=== PATIENT | male | born 1970 | race Caucasian/White ===

== ENCOUNTER 2024-10-13 16:24 | Emergency (ER) | payer OTHER, SELFPAY ==
--- NOTE | ~2024-10-13 | XR_ITS ---
CLINICAL HISTORY: twisted ankle at work 3 view left ankle Comparison: None Findings: Bones intact. No dislocations. No significant loss of joint space, osteophytes, or erosions. No ankle effusion. No radiopaque foreign body. IMPRESSION: 1. No acute findings. This document has been electronically signed by: Vishal Portillo MD on 10/13/2024 18:46:52
[2024-10-13 17:54] VITALS: BP 143/85; PULSE 80; RESP 20; TEMP 36.7; O2SAT 96; BMI 29.7
--- NOTE | 2024-10-13 17:54 | ED_ITS ---
HPI - Extremity Injury (Lower) General Chief Complaint: Extremity Injury, Lower Stated Complaint: rolled ankle, work injury Time Seen by Provider: 10/13/24 19:14 Source: patient, RN notes reviewed and old records reviewed Mode of arrival: ambulatory History of Present Illness ED Provider: Laura Acuna PA-C HPI Narrative: 54-year-old male with no significant past medical history presenting to the ED complaining of left ankle pain s/p pulling cable at work [employer] and foot was extended and heard a pop when foot/ankle twisted. Denies direct injury/trauma or fall. States pain exacerbated with certain positions, not that severe with ambulation. Denies numbness, tingling, weakness, injury to other area. Related Data Allergies Allergy/AdvReac Type Severity Reaction Status Date / Time No Known Allergies Allergy Verified 10/13/24 17:56 Review of Systems Review of Systems: Yes all other systems are reviewed and are negative Constitutional: Constitutional: Reports as per [facility] Past Medical History Attestation statement: The following information was validated with the patient. Source: old records reviewed Social History Social History Do you have a plan to hurt others: No Plan Physical Exam Vital Signs: Vital Signs: Last Vital Signs Temp 98.1 F 10/13/24 17:54 Pulse 76 10/13/24 19:15 Resp 18 10/13/24 19:15 BP 147/93 H 10/13/24 19:15 Pulse Ox 99 10/13/24 19:15 O2 Del Method Room Air 10/13/24 19:15 BMI result Body Mass Index 29.7 Const: General: cooperative, healthy appearing and no acute distress Orientation/consciousness: patient oriented x3 Limitations: no limitations HEENT: Head: Yes normal to inspection and Yes atraumatic Ears: hearing grossly normal bilaterally General nose exam: Normal external nose present Face and sinus: Yes normal facial exam Eyes: General: appearance normal, both eyes and all related structures EOM: EOMs intact bilaterally Neck: Neck: Yes normal visual inspection and Yes no meningeal signs Resp: Effort & Inspection: normal respiratory effort and no respiratory distress Cardio: Rate: regular rate Skin: Rashes: no rashes Wounds: no wounds Neuro: General: patient oriented x3, tone normal and no meningeal signs Cranial nerves: Yes CN's II-XII intact bilaterally Gait exam (Neuro): Normal gait present Extrem: Other: No appreciable deformity. No swelling/erythema or warmth. Mildly tender to palpation. ROM intact. Neurovascularly intact. No pitting edema General: Yes normal to inspection Course Course Course Narrative: This is a Rapid Medical Exam performed in triage by Laura Acuna PA-C. Full HPI, ROS and PE to be performed by primary ED provider. 54yo M presenting to the ED c/o left ankle pain s/p pulling on cable at work [employer] & foot was extended & heard a pop & ankle twisted. Denies direct trauma or fall. Pain exacerbated with certain positions. PE: L foot/ankle w/o deformity. No erythema/deformity. +slightly ttp. NV intact Plan: XR XR ankle LT min 3V IMPRESSION: 1. No acute findings. > Jim wrap applied Results discussed with patient including worrisome signs and symptoms and strict return precautions, and when to return to the emergency department. They verbalized understanding and feel safe for discharge at this time. Medical Decision Making Medical Decision Making MDM Narrative: 54-year-old male with no significant past medical history presenting to the ED complaining of left ankle pain s/p pulling cable at work [employer] and foot was extended and heard a pop when foot/ankle twisted. On exam vital signs stable, NAD, nontoxic appearing, physical exam as noted above. Concern for sprain vs fracture. No evidence of septic joint/arthritis Plan: X-rays Please refer to course for remaining clinical decision making, interpretation of labs/imaging results, and discussions with consultants and/or family members. Differential Diagnosis Differential Diagnoses: The differential diagnosis associated with the presentation includes As above Independent Interpretation I performed an independent interpretation of an: Plain X-Ray Radiology Impression Discussion of test interpretation with radiology: I have reviewed the radiologist's reading. External Record Review External record reviewed: Inpatient record, Office record, Outpatient record, Prior outpatient labs, Prior outpatient radiology, Primary care record and Outside ED record Tests considered The following testing was considered but not selected: As above Prescription Management I considered prescription management with: Pain Medication and Antibiotic Social Determinants Patient?s care significantly limited by Social Determinants of Health including: Other Social Determinant of Health Discharge Plan Discharge Clinical Impression: Ankle sprain and strain Patient Disposition: Home, Self-Care Instructions: Ankle Sprain (DC) Additional Instructions: Your x-rays unremarkable Ice and elevate Use Jim wrap for compression and stability Follow up with her doctor If symptoms persist or worsen return to the ED Referrals: [facility] [place]Provider Group] [facility] [Outside] Stand Alone Forms: Work/School Release Print Language: Portuguese
[2024-10-13 19:15] VITALS: BP 147/93; PULSE 76; RESP 18; O2SAT 99
[2024-10-13 19:23] VITALS: BP 147/93; PULSE 76; RESP 18; TEMP 37; O2SAT 99
== END 2024-10-13 19:24 | disposition home or self-care (01) ==
LOC: HO.ED 19:22
PROVIDERS: Emergency Provider Emergency Medicine
DX: S93.402A Sprain of unspecified ligament of left ankle, initial encounter (principal); M25.572 Pain in left ankle and joints of left foot; X50.1XXA Overexertion from prolonged static or awkward postures, initial encounter; Y93.9 Activity, unspecified; Y92.9 Unspecified place or not applicable; Y99.0 Civilian activity done for income or pay
CPT/HCPCS: 73610; 99282; 99283

== ENCOUNTER → 2024-10-13 17:56 | Outpatient (BNV) | payer OTHER, SELFPAY | PROVIDERS: Visit Provider Radiology Vascular & Interventional Radiology | DX: S93.402A Sprain of unspecified ligament of left ankle, initial encounter (principal); Z04.2 Encounter for examination and observation following work accident | CPT/HCPCS: 73610 ==